=== PATIENT | male | born 1975 | race Caucasian/White ===

== ENCOUNTER 2024-04-20 09:20 | Emergency (ER) | payer MEDICARE ==
[~2024-04-20] VITALS: Ht 137.2 cm; Wt 43.1 kg
[2024-04-20 09:29] VITALS: BP 146/82
[2024-04-20] MEDS ORDERED: Amoxicillin500 MG PO (09:33)
== END 2024-04-20 09:41 | disposition home or self-care (01) ==
LOC: ER 09:20
DX: K04.7 Periapical abscess without sinus (principal)
CPT/HCPCS: 99282